=== PATIENT | male | born 1960 | race Asian ===

== ENCOUNTER 2020-08-30 09:43 | Emergency (ER) | payer OTHER ==
[2020-08-30 09:48] VITALS: BP 140/81; PULSE 75; TEMP 98.9
[2020-08-30] MEDS ORDERED: BACITRACIN 0.9 GM PACKET ONE ×2 (10:02→10:17)
[2020-08-30] MEDS ORDERED: BACITRACIN 0.9 GM PACKET TP ONE (10:09)
== END 2020-08-30 10:27 | disposition home or self-care (01) ==
LOC: JER 09:43
DX: L02.511 Cutaneous abscess of right hand (principal)
CPT/HCPCS: 99283-25

== ENCOUNTER 2024-11-23 09:37 | Emergency (ER) | payer OTHER ==
[2024-11-23 09:51] VITALS: BP 142/78; PULSE 82; RESP 16; TEMP 97.9; BMI 23.6
== END 2024-11-23 11:12 | disposition home or self-care (01) ==
LOC: JER 09:37 → JERFT 09:37
DX: M79.644 Pain in right finger(s) (principal); M79.89 Other specified soft tissue disorders
CPT/HCPCS: 73130-TC-RT-FY; 99283-25